=== PATIENT | male | born 2005 | race Caucasian/White ===

== ENCOUNTER 2025-04-26 18:39 | Emergency (ER) | payer OTHER ==
[~2025-04-26] VITALS: Ht 182.8 cm; Wt 59.0 kg
[2025-04-26] MEDS ORDERED: Tdap Vaccine 0.5 ML SYR (Adult Vaccine) IM ONE (19:55)
[2025-04-26] MEDS ORDERED: CEPHALEXIN500 M1 PO (21:12)
== END 2025-04-26 21:07 | disposition left against medical advice (07) ==
LOC: ED 18:39
DX: S05.32XA Ocular laceration without prolapse or loss of intraocular tissue, left eye, initial encounter (principal); W01.0XXA Fall on same level from slipping, tripping and stumbling without subsequent striking against object, initial encounter; Y93.67 Activity, basketball; Y92.89 Other specified places as the place of occurrence of the external cause; Y99.8 Other external cause status